=== PATIENT | male | born 1975 | race Caucasian/White ===

== ENCOUNTER 2017-11-09 07:13 | Inpatient (IN) | payer OTHER ==
[~2017-11-09] VITALS: Ht 182.9 cm; Wt 102.3 kg
[2017-11-09] VITALS (11 sets, daily range): BP systolic 128–161; BP diastolic 73–98
[2017-11-09 07:51] LABS: BASOPHIL (%) 0.6 % (0-1); BASOPHIL COUNT 0.1 K/uL (0-0.1); EOSINOPHIL COUNT 0.1 K/uL (0-0.3); HEMATOCRIT 43.3 % (38.0-50.0); HEMOGLOBIN 14.4 G/DL (12.5-16.6); IMMATURE GRANULOCYTE (%) 0.4 % (0.0-0.7); LYMPHOCYTE (%) 13.1 % (15-42); LYMPHOCYTE COUNT 1.4 K/uL (1.0-2.8); MCH 27.6 PG (29.0-34.0); MCHC 33.3 G/DL (30.0-36.0); MCV 83.1 FL (86-99); MONOCYTE (%) 5.5 % (3-12); MONOCYTE COUNT 0.6 K/uL (0-0.8); NEUTROPHIL (%) 79.4 % (45-76); NEUTROPHIL COUNT 8.6 K/uL (1.8-6.4); PLATELET COUNT 229 K/uL (156-360); RBC DIS.WIDTH-CV 12.6 % (11.8-14.6); RBC DIS.WIDTH-SD 38.3 % (39-53); RED BLOOD COUNT 5.21 M/uL (4.00-5.50); WHITE BLOOD COUNT 10.9 K/uL (4.1-10.2)
[2017-11-09 07:57] LABS: INTER. NORMALIZED RATIO 1.1
[2017-11-09 08:02] LABS: AMYLASE 42 IU/L (1-118); CHLORIDE 106 mEq/L (99-109); POTASSIUM 5.3 mEq/L (3.7-5.4); SODIUM 137 mEq/L (136-147)
[2017-11-09 08:04] LABS: GLUCOSE 144 mg/dL (70-99)
[2017-11-09 08:07] LABS: SERUM ETHYL ALCOHOL < 10 mg/dL
[2017-11-09 08:08] LABS: GFR ESTIMATE (CALCULATED) > 59 mL/min/ (58.99-99999)
[2017-11-09 08:09] LABS: UREA NITROGEN (BUN) 22 mg/dL (9-23)
[2017-11-09 08:11] LABS: LIPASE 6 U/L (1.0-51.0)
[2017-11-09 08:17] LABS: TROP-I INTERPRETATION NEGATIVE; TROPONIN-I 0.01 ng/mL (0.0-0.30)
[2017-11-09] MEDS ORDERED: FLUTICASONE PRO16 GM BOTH NARES (12:47)
[2017-11-09 17:07] LABS: INTER. NORMALIZED RATIO 1.1
[2017-11-09 17:09] LABS: PTT 30.6 SEC (25-37)
[2017-11-09 17:26] LABS: HDL CHOLESTEROL 56 MG/DL (Desirable>=40); LDL CHOLESTEROL 106 mg/dL (Desirable<100); NON-HDL CHOLESTEROL 119 mg/dL (Desirable<160); TOTAL CHOLESTEROL 175 mg/dL (Desirable<200); TRIGLYCERIDES 63 MG/DL (Normal: <150)
[2017-11-10] VITALS: BP 148/87
[2017-11-10 01:00] VITALS: BP 138/88
[2017-11-10 02:00] VITALS: BP 153/90
[2017-11-10 11:50] LABS: HEMOGLOBIN A1c (GLYCOHEMOGLOB) 5.4 % (Below 5.7)
== END 2017-11-10 02:04 | disposition short-term general hospital (02) | DRG 66 ==
LOC: EME 07:13 → EDOF 12:40 → 4WEST 12:40 → ENRESERV 12:43 → 4WEST 14:21
PROVIDERS: Emergency Medicine; Specialist
DX: I63.9 Cerebral infarction, unspecified (principal); D57.1 Sickle-cell disease without crisis; I65.01 Occlusion and stenosis of right vertebral artery; I65.1 Occlusion and stenosis of basilar artery; R13.10 Dysphagia, unspecified; R47.1 Dysarthria and anarthria; I10 Essential (primary) hypertension; J45.909 Unspecified asthma, uncomplicated; R29.702 NIHSS score 2
CPT/HCPCS: 70450; 70496; 70498; 70544; 70549; 70553; 71045; 80048; 80048 91; 80061; 81003; 82150; 82948; 83036; 83690; 84484; 85025; 85027; 85610; 85730; 86850; 86900; 86901; 87641; 93005; 99281; 99285; G0480; J2405; J7030

== ENCOUNTER 2017-11-17 14:54 | Inpatient (IN) | payer OTHER ==
[~2017-11-17] VITALS: Ht 185.4 cm; Wt 94.6 kg
[~2017-11-17 14:54] MED LIST: FLUTICASONE PRO16 GM BOTH NARES
[2017-11-17] MEDS ORDERED: BACLOFEN10 MG GT (17:21)
[2017-11-17] MEDS ORDERED: ASPIRIN81 M2 GT (17:21)
[2017-11-17] MEDS ORDERED: MIRALAX17 GM PO (17:23)
[2017-11-17] MEDS ORDERED: VISINE15 ML BOTH EYES (17:23)
[2017-11-17] MEDS ORDERED: LOVENOX40 MG/0.4 SC (17:24)
[2017-11-17 18:24] VITALS: BP 156/80
[2017-11-18] VITALS: BP 145/74
[2017-11-18 05:09] VITALS: BP 142/75
[2017-11-18 06:32] LABS: HEMATOCRIT 46.9 % (38.0-50.0); HEMOGLOBIN 14.8 G/DL (12.5-16.6); MCH 27.8 PG (29.0-34.0); MCHC 31.6 G/DL (30.0-36.0); PLATELET COUNT 222 K/uL (156-360); RBC DIS.WIDTH-CV 12.9 % (11.8-14.6); RBC DIS.WIDTH-SD 41.1 % (39-53); RED BLOOD COUNT 5.33 M/uL (4.00-5.50); WHITE BLOOD COUNT 13.1 K/uL (4.1-10.2)
[2017-11-18 06:46] LABS: ALBUMIN 4.5 G/DL (3.2-4.8); ALKALINE PHOSPHATASE 45 IU/L (3-129); ALT (GPT) 32 IU/L (3-49); AST (GOT) 21 IU/L (2-34); CHLORIDE 110 MEQ/L (99-109); GFR ESTIMATE (CALCULATED) > 59 mL/min/ (58.99-99999); GLUCOSE 121 mg/dL (70-99); POTASSIUM 4.2 MEQ/L (3.7-5.4); SODIUM 150 MEQ/L (136-147); TOTAL BILIRUBIN 0.9 MG/DL (0.0-1.0); TOTAL PROTEIN 7.4 G/DL (6.4-8.3); UREA NITROGEN (BUN) 30 mg/dL (9-23)
[2017-11-18 15:22] VITALS: BP 136/80
[2017-11-19 05:55] VITALS: BP 154/78
[2017-11-19 08:50] LABS: HEMATOCRIT 48.3 % (38.0-50.0); MCH 27.4 PG (29.0-34.0); MCHC 31.1 G/DL (30.0-36.0); MCV 88.3 FL (86-99); PLATELET COUNT 244 K/uL (156-360); RBC DIS.WIDTH-CV 12.5 % (11.8-14.6); RBC DIS.WIDTH-SD 40.9 % (39-53); RED BLOOD COUNT 5.47 M/uL (4.00-5.50); WHITE BLOOD COUNT 13.1 K/uL (4.1-10.2)
[2017-11-19 09:14] LABS: ALBUMIN 4.7 G/DL (3.2-4.8); CHLORIDE 108 MEQ/L (99-109); GFR ESTIMATE (CALCULATED) > 59 mL/min/ (58.99-99999); GLUCOSE 171 mg/dL (70-99); PHOSPHORUS 4.4 mg/dL (2.5-4.9); POTASSIUM 4.3 MEQ/L (3.7-5.4); SODIUM 148 MEQ/L (136-147); UREA NITROGEN (BUN) 29 mg/dL (9-23)
[2017-11-19 14:57] VITALS: BP 145/86
[2017-11-20 05:30] VITALS: BP 120/72
[2017-11-20 09:02] LABS: CHLORIDE 104 MEQ/L (99-109); CREATININE 0.8 MG/DL (0.6-1.3); GFR ESTIMATE (CALCULATED) > 59 mL/min/ (58.99-99999); GLUCOSE 161 mg/dL (70-99); SODIUM 143 MEQ/L (136-147); UREA NITROGEN (BUN) 27 mg/dL (9-23)
[2017-11-20 15:27] VITALS: BP 141/85
[2017-11-21 05:33] VITALS: BP 123/74
[2017-11-21 15:27] VITALS: BP 134/78
[2017-11-22 05:40] VITALS: BP 126/66
[2017-11-22 07:06] LABS: CHLORIDE 107 MEQ/L (99-109); CREATININE 0.7 MG/DL (0.6-1.3); GFR ESTIMATE (CALCULATED) > 59 mL/min/ (58.99-99999); GLUCOSE 190 mg/dL (70-99); POTASSIUM 4.8 MEQ/L (3.7-5.4); SODIUM 146 MEQ/L (136-147); UREA NITROGEN (BUN) 30 mg/dL (9-23)
[2017-11-22 15:30] VITALS: BP 135/56
[2017-11-23 04:59] VITALS: BP 129/80
[2017-11-23 15:16] VITALS: BP 126/81
[2017-11-23 21:00] VITALS: BP 125/78
[2017-11-24] VITALS: BP 132/75
[2017-11-24 02:35] VITALS: BP 115/74
[2017-11-24 06:22] VITALS: BP 142/80
[2017-11-24 08:51] LABS: HEMATOCRIT 49.1 % (38.0-50.0); HEMOGLOBIN 15.5 G/DL (12.5-16.6); MCH 27.2 PG (29.0-34.0); MCHC 31.6 G/DL (30.0-36.0); MCV 86.1 FL (86-99); PLATELET COUNT 310 K/uL (156-360); RBC DIS.WIDTH-CV 12.2 % (11.8-14.6); RBC DIS.WIDTH-SD 38.5 % (39-53); WHITE BLOOD COUNT 18.6 K/uL (4.1-10.2)
[2017-11-24 09:02] LABS: INTER. NORMALIZED RATIO 1.2
[2017-11-24 16:02] VITALS: BP 145/89
[2017-11-25 04:57] VITALS: BP 140/74
[2017-11-25 15:10] VITALS: BP 130/84
[2017-11-26 06:05] VITALS: BP 131/73
[2017-11-26 16:40] VITALS: BP 128/85
[2017-11-27 05:20] VITALS: BP 111/65
[2017-11-27 18:06] VITALS: BP 148/82
[2017-11-27 21:24] VITALS: BP 137/80
[2017-11-28 05:28] VITALS: BP 126/71
[2017-11-28 15:35] VITALS: BP 122/78
[2017-11-29 04:54] LABS: BASOPHIL (%) 0.2 % (0-1); EOSINOPHIL (%) 0.1 % (0-5); HEMATOCRIT 45.6 % (38.0-50.0); HEMOGLOBIN 15.1 G/DL (12.5-16.6); IMMATURE GRANULOCYTE (%) 1.2 % (0.0-0.7); LYMPHOCYTE (%) 5.6 % (15-42); LYMPHOCYTE COUNT 1.2 K/uL (1.0-2.8); MCH 28.1 PG (29.0-34.0); MCHC 33.1 G/DL (30.0-36.0); MCV 84.9 FL (86-99); MONOCYTE (%) 6.1 % (3-12); MONOCYTE COUNT 1.3 K/uL (0-0.8); NEUTROPHIL (%) 86.8 % (45-76); NEUTROPHIL COUNT 18.4 K/uL (1.8-6.4); PLATELET COUNT 292 K/uL (156-360); RBC DIS.WIDTH-CV 12.2 % (11.8-14.6); RBC DIS.WIDTH-SD 37.2 % (39-53); RED BLOOD COUNT 5.37 M/uL (4.00-5.50); WHITE BLOOD COUNT 21.2 K/uL (4.1-10.2)
[2017-11-29 05:04] LABS: CHLORIDE 102 mEq/L (99-109); POTASSIUM 4.5 mEq/L (3.7-5.4)
[2017-11-29 05:06] LABS: GLUCOSE 114 mg/dL (70-99); SODIUM 138 mEq/L (136-147)
[2017-11-29 05:10] LABS: CREATININE 0.8 mg/dL (0.6-1.3); GFR ESTIMATE (CALCULATED) > 59 mL/min/ (58.99-99999)
[2017-11-29 05:11] VITALS: BP 131/69
[2017-11-29 05:11] LABS: UREA NITROGEN (BUN) 22 mg/dL (9-23)
[2017-11-29 15:07] VITALS: BP 132/74
[2017-11-30 05:29] VITALS: BP 116/74
[2017-11-30 07:33] VITALS: BP 126/70
[2017-11-30 16:00] VITALS: BP 121/61
[2017-12-01 05:40] VITALS: BP 133/71
[2017-12-01 07:39] VITALS: BP 110/69
[2017-12-01] MEDS ORDERED: BACLOFEN10 MG GT (10:05)
[2017-12-01] MEDS ORDERED: MIRALAX17 GM PO (10:05)
[2017-12-01] MEDS ORDERED: VISINE15 ML BOTH EYES (10:05)
[2017-12-01] MEDS ORDERED: PREDNISONE1 MG/ML GT (10:05)
[2017-12-01] MEDS ORDERED: DIFLUCAN 440 MG/1 ML GT (10:05)
[2017-12-01] MEDS ORDERED: FLUTICASONE PRO16 GM BOTH NARES (10:05)
[2017-12-01] MEDS ORDERED: ATORVASTATIN CA80 MG GT (10:05)
[2017-12-01] MEDS ORDERED: ASPIRIN81 M2 GT (10:05)
[2017-12-01] MEDS ORDERED: DULERA 100 MCG/13 GM IH (10:05)
[2017-12-01] MEDS ORDERED: PREVACID SOLUTA30 MG GT (10:05)
[2017-12-01] MEDS ORDERED: SENNA8.8 MG/5 M GT (10:05)
[2017-12-01] MEDS ORDERED: DOCU LIQUI50 MG/5 ML GT (10:05)
[2017-12-01] MEDS ORDERED: SPIRIVA RESPIMAT4 GM IH (10:05)
== END 2017-12-01 14:20 | disposition home health service (06) | DRG 56 ==
LOC: 3WEST 14:54 → ENPENDDIS 12-01 → 3WEST 12-01 14:20
PROVIDERS: Internal Medicine Gastroenterology; Internal Medicine Pulmonary Disease; Physical Medicine & Rehabilitation Pain Medicine
PROC: F07M7ZZ Manual Therapy Techniques Treatment of Musculoskeletal System - Whole Body (ICD-10-PCS; principal; 2017-11-17)
PROC: 3E0G76Z Introduction of Nutritional Substance into Upper GI, Via Natural or Artificial Opening (ICD-10-PCS; 2017-11-27)
PROC: 0DH63UZ Insertion of Feeding Device into Stomach, Percutaneous Approach (ICD-10-PCS; 2017-11-27)
DX: G81.94 Hemiplegia, unspecified affecting left nondominant side (principal); I77.74 Dissection of vertebral artery; G46.4 Cerebellar stroke syndrome; J45.21 Mild intermittent asthma with (acute) exacerbation; J38.01 Paralysis of vocal cords and larynx, unilateral; I69.991 Dysphagia following unspecified cerebrovascular disease; R26.9 Unspecified abnormalities of gait and mobility; R29.810 Facial weakness; R06.6 Hiccough; I65.01 Occlusion and stenosis of right vertebral artery; I10 Essential (primary) hypertension; J32.9 Chronic sinusitis, unspecified; E87.0 Hyperosmolality and hypernatremia; G43.909 Migraine, unspecified, not intractable, without status migrainosus; K29.70 Gastritis, unspecified, without bleeding; D72.829 Elevated white blood cell count, unspecified; K59.00 Constipation, unspecified; Z86.79 Personal history of other diseases of the circulatory system
CPT/HCPCS: 71045; 74230; 80048; 80053; 80069; 82948; 85025; 85027; 85610; 88305; 88312; 88342 TC; 92507 GN; 92523 GN; 92526 GN; 92611 GN; 94640; 94640 76; 97110 GO; 97530 GP; 99202; C9113; J1650; J1956; J2250; J2405; J2920; J2930; J3010; J7030; J7070; J7512

== ENCOUNTER 2017-12-05 14:55 | Emergency (ER) | payer OTHER ==
[~2017-12-05] VITALS: Ht 182.9 cm; Wt 90.9 kg
[~2017-12-05 14:55] MED LIST changes: +ASPIRIN81 M2 GT; +ATORVASTATIN CA80 MG GT; +BACLOFEN10 MG GT; +DIFLUCAN 440 MG/1 ML GT; +DOCU LIQUI50 MG/5 ML GT; +DULERA 100 MCG/13 GM IH; +LOVENOX40 MG/0.4 SC; +MIRALAX17 GM PO; +PREDNISONE1 MG/ML GT; +PREVACID SOLUTA30 MG GT; +SENNA8.8 MG/5 M GT; +SPIRIVA RESPIMAT4 GM IH; +VISINE15 ML BOTH EYES
[2017-12-05 15:27] LABS: HEMATOCRIT 48.4 % (38.0-50.0); HEMOGLOBIN 15.6 G/DL (12.5-16.6); MCH 27.8 PG (29.0-34.0); MCHC 32.2 G/DL (30.0-36.0); MCV 86.3 FL (86-99); PLATELET COUNT 208 K/uL (156-360); RBC DIS.WIDTH-CV 12.6 % (11.8-14.6); RBC DIS.WIDTH-SD 39.4 % (39-53); RED BLOOD COUNT 5.61 M/uL (4.00-5.50); WHITE BLOOD COUNT 20.1 K/uL (4.1-10.2)
[2017-12-05 15:35] LABS: CHLORIDE 99 mEq/L (99-109); POTASSIUM 4.3 mEq/L (3.7-5.4); SODIUM 138 mEq/L (136-147)
[2017-12-05 15:37] LABS: GLUCOSE 164 mg/dL (70-99)
[2017-12-05 15:41] LABS: CREATININE 0.8 mg/dL (0.6-1.3); GFR ESTIMATE (CALCULATED) > 59 mL/min/ (58.99-99999)
[2017-12-05 15:42] LABS: UREA NITROGEN (BUN) 14 mg/dL (9-23)
[2017-12-05 16:18] LABS: TROP-I INTERPRETATION NEGATIVE; TROPONIN-I 0.02 ng/mL (0.0-0.30)
[2017-12-05 18:28] VITALS: BP 120/67
== END 2017-12-05 18:42 | disposition home or self-care (01) ==
LOC: EME 14:55
DX: H53.2 Diplopia (principal); Z86.73 Personal history of transient ischemic attack (TIA), and cerebral infarction without residual deficits; R94.31 Abnormal electrocardiogram [ECG] [EKG]; I10 Essential (primary) hypertension; J45.909 Unspecified asthma, uncomplicated; Z95.828 Presence of other vascular implants and grafts
CPT/HCPCS: 70450; 70496; 70498; 70551; 71045; 80047; 80048; 81003; 82948; 84484; 85027; 93005; 99281; 99285

== ENCOUNTER → 2018-01-25 | Outpatient (CLI) | payer OTHER | END | disposition home or self-care (01) | DX: R13.13 Dysphagia, pharyngeal phase (principal); I69.391 Dysphagia following cerebral infarction | CPT/HCPCS: 92611 GN; G8996 GN; G8997 GN; G8998 GN ==